=== PATIENT | male | born 1960 | race Caucasian/White ===

== ENCOUNTER 2023-10-03 14:21 | Outpatient (CLI) | payer SELFPAY ==
[2023-10-03 14:41] LABS: Basophils Absolute Auto 0.07 K/mm3 (0.00-0.10); Basophils Percent Auto 0.9 % (0.0-1.0); Eosinophils Absolute Auto 0.29 K/mm3 (0.02-0.50); Eosinophils Percent Auto 3.9 % (1.0-6.0); Immature Granulocyte Absolute 0.02 K/mm3 (0.00-0.00); Immature Granulocyte Percent A 0.3 % (0.0-0.0); Lymphocytes Percent Auto 21.7 % (18.0-42.0); Mean Corpuscular Hemoglobin 30.6 pg (27.0-31.0); Mean Corpuscular Volume 87.5 fL (78.0-102.0); Monocytes Absolute Auto 0.51 K/mm3 (0.10-0.90); Monocytes Percent Auto 6.9 % (2.0-11.0); Neutrophils Absolute Auto 4.9 K/mm3 (1.7-7.2); Neutrophils Percent Auto 66.3 % (50.0-70.0); Platelet Count Result 239 K/mm3 (150-420); Red Blood Count 4.57 M/mm3 (4.70-6.10); Red Cell Distribution Width 13.4 % (11.6-14.4); White Blood Count 7.4 K/mm3 (4.8-10.8)
[2023-10-03 14:55] LABS: Creatinine Urine 163.33 mg/dL (40-278); MALB Creatinine Ratio 7.9 mg/g (0-30); Microalbumin Urine Random < 13.0 mg/L
[2023-10-03 15:21] LABS: Alanine Aminotransferase 79 U/L (16-63); Albumin Level 4.4 g/dL (3.4-5.0); Alkaline Phosphatase 106 U/L (46-116); Anion Gap 7 mmol/L (8-16); Aspartate Amino Transferase 37 U/L (15-37); Blood Urea Nitrogen 11 mg/dL (7-18); Calcium 9.6 mg/dL (8.5-10.1); Carbon Dioxide 32 mmol/L (21-32); Chloride 97 mmol/L (98-108); Cholesterol 218 mg/dL (0-200); Estimated Glomerular Filt Rate > 60; Glucose 84 mg/dL (70-99); HDL Direct 58 mg/dL (40-60); LDL Cholesterol Calculated 120 mg/dL (<130); Osmolality Calculated 280 mOsm/kg (285-295); Potassium 4.1 mmol/L (3.5-5.1); Prostate Specific Antigen 0.9 ng/mL (< OR = 4.0); Sodium 136 mmol/L (136-145); Total Protein 7.1 g/dL (6.4-8.2); Triglycerides 201 mg/dL (0-150)
[2023-10-03 15:22] LABS: Thyroid Stimulating Hormone Reflex 1.57 u/IU/mL (0.36-3.74)
== END 2023-10-03 14:22 | disposition home or self-care (01) ==
PROVIDERS: PCP Student in an Organized Health Care Education/Training Program; Visit Provider Student in an Organized Health Care Education/Training Program
DX: Z00.00 Encounter for general adult medical examination without abnormal findings (principal); E11.9 Type 2 diabetes mellitus without complications; E78.00 Pure hypercholesterolemia, unspecified; Z12.5 Encounter for screening for malignant neoplasm of prostate
CPT/HCPCS: 36415; 80053; 80061; 82043; 84153; 84443; 85025; G0103

== ENCOUNTER 2024-09-14 10:39 | Emergency (ER) | payer MEDICARE, SELFPAY ==
--- NOTE | ~2024-09-14 | XR_ITS ---
XR knee LT 3V DATE: 09/14/2024 10:59 INDICATION: Left knee pain for one day after twisting injury TECHNIQUE: 3 views COMPARISON: None FINDINGS: Prominent periarticular spurring of the patella and some narrowing at the patellofemoral cordell int space. Minimal periarticular spurring of the medial femoral condyle. Medial and lateral compartment joint sp aces are relatively intact. No fracture or dislocation or significant joint effusion is evident. No radiopaque intra-articular lo ose body or chondrocalcinosis. No periosteal reaction or bone destruction. IMPRESSION: Osteophytic change, most prominently at the patellofemoral joint. No fracture or dislocation or significant joint effusion is detected Reviewed, dictated and finalized at location A. T [facility]
[2024-09-14 10:40] VITALS: BP 143/91; PULSE 64; RESP 19; TEMP 36.3; O2SAT 97
--- NOTE | 2024-09-14 10:51 | ED.LOWEXIN ---
HPI - Extremity Injury (Lower) General Chief Complaint: Extremity Injury, Lower Stated Complaint: knee pain Time Seen by Provider: 09/14/24 10:50 Source: patient Mode of arrival: ambulatory Limitations: no limitations History of Present Illness HPI Narrative: patient is a 64-year-old male with a significant past medical history that presents today with a left knee injury. Patient states that he was getting a battery out of a boat and hold up and may have twisted his left knee. He states he is having left knee pain and it is worse with bending. He hears a popping sensation when he bends his left knee. He says he did hear this popping station and the past however it was after his frequent now every time he bends 80 years a popping sensation. MD complaint: knee injury Onset (ago): hour(s) Injury: Left: knee Type of Injury: hyperextension Place: home Severity: mild Severity scale (1-10): 3 Relieving factors: nothing Exacerbating factors: weight bearing and movement Context: other Associated symptoms: snap/pop sensation Other symptoms: none Related Data Home Medications Medication Instructions Recorded Confirmed metformin 1,000 mg tablet 1,000 mg PO DAILY 09/14/24 09/14/24 Allergies Allergy/AdvReac Type Severity Reaction Status Date / Time No Known Allergies Allergy Verified 09/14/24 10:53 Review of Systems Review of Systems: All systems reviewed & are unremarkable except as noted in HPI and below Constitutional: Constitutional: Reports as per HPI Eyes: Eyes: Reports no additional eye complaints ENT: Reports system reviewed and no additional complaints, except as documented Cardiovascular: Cardiovascular: Reports no additional cardiovascular complaints Respiratory: Respiratory: Reports no additional respiratory complaints Gastrointestinal: Gastrointestinal: Reports no additional gastrointestinal complaints Genitourinary: Genitourinary: Reports no additional male genitourinary complaints Musculoskeletal: Musculoskeletal: Reports as per HPI and Reports arthralgias ( Left knee) Integumentary/Breasts: Skin/Breast: Reports system reviewed and no additional complaints, except as docu Neurologic: Reports system reviewed and no additional complaints, except as documented Psychiatric: Psychiatric: Reports no additional psychiatric complaints Endocrine: Endocrine: Reports no additional endocrine complaints Hematologic/Lymphatic: Hematologic/Lymphatic: Reports no additional hematologic/lymphatic complaints Allergic/Immunologic: Allergic/Immunologic: Reports no additional allergic/immunologic complaints [facility] Past Medical History Medical History Adenomatous colon polyp Exam Const: General: healthy appearing Nutritional Appearance: well nourished Orientation/consciousness: patient oriented x3 HENMT: Head: normal to inspection Ears: external ears normal Face/Nose/Sinus: Normal external nose present Face and sinus: normal facial exam Eyes: Conjunctivae: conjunctivae normal Pupils: Equal, round and reactive pupils present EOM: EOMs intact bilaterally Neck: Neck: normal visual inspection and no lymphadenopathy Chest: Chest palpation & inspection: normal inspection of the chest Resp: Effort & Inspection: normal respiratory effort Auscultation: clear to auscultation bilaterally Cardio: Rate: regular rate Rhythm: regular rhythm GI: GI Palp: Yes Soft to palpation Back/Spine/Pelvis: Back: no CVA tenderness Skin: General skin exam: normal color Rashes: no rashes Wounds: no wounds Neuro: General: patient oriented x3 Cranial nerves: Yes Nystagmus not present Extrem: General: normal to inspection Other: popping sensation to left knee when flexed Psych: Mental Status: mental status grossly normal Affect: normal affect Course Reevaluation(s) Reevaluation #1: x-ray showed osteoarthritic changes at mostly at the patellofemoral joint. Date: 09/14/24 Time: 11:30 Vital Signs Vital signs: Vital Signs Temperature 97.4 F L 09/14/24 10:40 Pulse Rate 64 09/14/24 10:40 Respiratory Rate 19 09/14/24 10:40 Blood Pressure 143/91 H 09/14/24 10:40 Pulse Oximetry 97 09/14/24 10:40 Oxygen Delivery Room Air 09/14/24 10:40 Temperature 97.4 F L 09/14/24 10:40 Pulse Rate 64 09/14/24 10:40 Respiratory Rate 19 09/14/24 10:40 Blood Pressure 143/91 H 09/14/24 10:40 Pulse Oximetry 97 09/14/24 10:40 Oxygen Delivery Room Air 09/14/24 10:40 MDM - Extremity Injury (Lower) MDM Narrative Medical decision making narrative: patient has a popping sensation in the left knee is flexed. This is indicative of patellofemoral syndrome and he says that he did have this in the past just was not frequent now it pops. IV bends it. This may be from inflammation of the patella tendon causing the patella to be off tracking and causing the popping. Will apply ice pack will do an x-ray to the left knee to ensure there is dislocation or fracture. Discussed have putting ice on few days then switch to heat and taking it easy and taking ibuprofen as needed. Discussed once healed to quad strengthening exercises to help with patellar tracking. Differential Diagnosis Differential diagnosis: Likely other ( Patellar tendon sprain) Medical Records Attestation: I reviewed the patient's medical records. Lab Data Attestation: I reviewed the patient's lab results. Discharge Plan Discharge Clinical Impression: Knee osteoarthritis, Knee strain, Patella-femoral syndrome Patient Disposition: Home, Self-Care Condition: Stable Instructions: Antibiotic Form Additional Instructions: apply ice for the next 2 days, then switch to heat. Take -as needed. Weight 3-4 weeks to proper healing is still having pain in that amount of time that recommend getting an MRI done. If pain is gone and that amount of time and do quad strengthening exercises as explained to patient For patellofemoral syndrome. Prescriptions: No Action metformin 1,000 mg tablet 1,000 mg PO DAILY Follow-up/Referrals: UNKNOWN,DOCTOR [Non-Staff] - Time of Disposition: 11:32
[2024-09-14 11:50] VITALS: BP 138/74; PULSE 76; RESP 18; TEMP 36.2; O2SAT 97
== END 2024-09-14 11:53 | disposition home or self-care (01) ==
PROVIDERS: Emergency Provider Family Medicine; PCP Student in an Organized Health Care Education/Training Program
DX: S86.812A Strain of other muscle(s) and tendon(s) at lower leg level, left leg, initial encounter (principal); M22.2X1 Patellofemoral disorders, right knee; M17.12 Unilateral primary osteoarthritis, left knee; Z79.84 Long term (current) use of oral hypoglycemic drugs; X50.0XXA Overexertion from strenuous movement or load, initial encounter; Y92.009 Unspecified place in unspecified non-institutional (private) residence as the place of occurrence of the external cause
CPT/HCPCS: 73562; 99283